=== PATIENT | female | born 1995 | race Hispanic/Latino ===

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

== ENCOUNTER 2017-01-02 20:27 | Emergency (ER) | payer OTHER ==
[~2017-01-02] VITALS: Ht 152.4 cm; Wt 77.3 kg
[~2017-01-02 20:27] MED LIST: CYCL10TA PO; FERR28TA PO; IBUP-1022 PO
[2017-01-02] MEDS ORDERED: KETOROLAC TROMETHAMINE 10 MG TAB PO ONE (21:45)
[2017-01-02] MEDS ORDERED: CYCLOBENZAPRINE 10 MG TAB PO ONE (21:45)
[2017-01-02 23:04] VITALS: BP 112/66
== END 2017-01-02 23:40 | disposition home or self-care (01) ==
LOC: M ED 20:27
DX: M51.26 Other intervertebral disc displacement, lumbar region (principal); R51 Headache; G89.29 Other chronic pain; F41.9 Anxiety disorder, unspecified; F33.9 Major depressive disorder, recurrent, unspecified; A48.1 Legionnaires' disease

== ENCOUNTER 2017-03-02 12:05 | Emergency (ER) | payer OTHER ==
[~2017-03-02] VITALS: Ht 149.9 cm; Wt 77.3 kg
[2017-03-02] MEDS ORDERED: ONDANSETRON 4 MG ORAL DISINTEGRATING TAB (S0181) PO ONE (15:15)
[2017-03-02] MEDS ORDERED: ACETAMINOPHEN 325 MG TAB PO ONE (15:15)
--- NOTE | 2017-03-02 15:45 | REP ---
Clinical: Cough . Comparison: None . Technique: PA and lateral. Findings: The mediastinum and cardiac silhouette are normal. The lung calderon are clear and without acute consolidation, effusion, or pneumothorax. The skeletal structures are intact and normal. Impression: 1. No acute cardiopulmonary process. Signed by Colin Munguia MD 03/02/2017 03:37 P
--- NOTE | 2017-03-02 15:55 | REP ---
CERVICAL SPINE, SEVEN VIEWS: HISTORY: Trauma. There is no acute fracture or subluxation. The intervertebral discs are normal in height. The neural foramina are patent. IMPRESSION: There is no acute fracture or subluxation. Signed by Christiano Puga MD 03/02/2017 04:02 P
[2017-03-02] MEDS ORDERED: VENTAER IN (16:02)
[2017-03-02] MEDS ORDERED: IBUP-1022 PO (16:02)
[2017-03-02 16:10] VITALS: BP 116/58
== END 2017-03-02 16:12 | disposition home or self-care (01) ==
LOC: M ED 12:05
DX: J20.8 Acute bronchitis due to other specified organisms (principal); S13.9XXA Sprain of joints and ligaments of unspecified parts of neck, initial encounter; Z72.0 Tobacco use; V49.40XA Driver injured in collision with unspecified motor vehicles in traffic accident, initial encounter; Y92.410 Unspecified street and highway as the place of occurrence of the external cause; Y93.89 Activity, other specified; Y99.9 Unspecified external cause status

== ENCOUNTER 2017-10-03 12:08 | Emergency (ER) | payer OTHER ==
[2017-10-03] MEDS: ONDANSETRON 4 MG ORAL DISINTEGRATING TAB (Q0162 PER 1MG) PO (13:34)
== END 2017-10-03 15:04 | disposition home or self-care (01) ==
LOC: M ED 12:08
DX: O26.899 Other specified pregnancy related conditions, unspecified trimester (principal); O21.9 Vomiting of pregnancy, unspecified; R19.7 Diarrhea, unspecified; O99.340 Other mental disorders complicating pregnancy, unspecified trimester; F43.10 Post-traumatic stress disorder, unspecified; Z3A.00 Weeks of gestation of pregnancy not specified
CPT/HCPCS: Q0162

== ENCOUNTER 2017-10-09 22:32 | Emergency (ER) | payer OTHER ==
[2017-10-10] MEDS: NS 1,000 ML IV (01:00)
[2017-10-10 01:16] LABS: BASO # 0.1 10^3/uL (0.0-0.2); BASO % 0.4 % (0.0-1.0); EOS # 0.4 10^3/uL (0.0-0.50); EOS % 3.3 % (0.0-3.0); HEMATOCRIT 40.4 % (36.0-47.0); HEMOGLOBIN 12.5 g/dl (12.0-15.5); IMMATURE GRANULOCYTE % 0.3 % (0-3.0); LYMPH # 3.7 10^3/uL (1.5-6.5); LYMPH % 31.6 % (24.0-44.0); MEAN CORPUSCULAR HEMOGLOBIN 21.2 pg (27.0-33.0); MEAN CORPUSCULAR HGB CONC 30.9 g/dl (32.0-36.5); MEAN CORPUSCULAR VOLUME 68.4 fl (80.0-96.0); MONO # 0.7 10^3/uL (0.0-0.8); MONO % 5.9 % (0.0-5.0); NEUTROPHILS # 6.8 10^3/uL (1.8-7.7); NEUTROPHILS % 58.5 % (36.0-66.0); PLATELET COUNT, AUTOMATED 230 10^3/uL (150-450); RED BLOOD COUNT 5.91 10^6/uL (4.00-5.40); RED CELL DISTRIBUTION WIDTH 15.9 % (11.5-14.5); WHITE BLOOD COUNT 11.6 10^3/uL (4.0-10.0)
[2017-10-10 01:45] LABS: KETONE, URINE AUTO RFX NEGATIVE (NEGATIVE); MUCUS, URINE RFX SMALL (NEGATIVE); NITRITE, URINE AUTO RFX NEGATIVE (NEGATIVE); RBC, URINE AUTO RFX 2 /HPF (0-3); SPECIFIC GRAVITY UR AUTO RFX 1.014 (1.002-1.035); SQUAM EPITHELIAL CELL UR AURFX 2 /HPF (0-6); WBC, URINE AUTO RFX 2 /HPF (0-3)
[2017-10-10 01:46] LABS: LEUKOCYTE ESTERASE UR AUTO RFX TRACE (NEGATIVE)
[2017-10-10 02:24] LABS: HCG, SERUM QUANTITATIVE 29730 MIU/ML
== END 2017-10-10 03:51 | disposition home or self-care (01) ==
LOC: M ED 22:32
DX: O20.0 Threatened abortion (principal); O99.341 Other mental disorders complicating pregnancy, first trimester; Z3A.01 Less than 8 weeks gestation of pregnancy
CPT/HCPCS: 76801

== ENCOUNTER 2017-10-18 10:40 | Emergency (ER) | payer OTHER ==
[2017-10-18] MEDS: NS 1,000 ML IV (11:30)
[2017-10-18] MEDS: METOCLOPRAMIDE INJ 10MG/2ML VIAL (J2765) IV (11:36)
[2017-10-18 11:50] LABS: BASO % 0.4 % (0.0-1.0); EOS # 0.3 10^3/uL (0.0-0.50); EOS % 2.7 % (0.0-3.0); HEMATOCRIT 38.4 % (36.0-47.0); HEMOGLOBIN 11.8 g/dl (12.0-15.5); IMMATURE GRANULOCYTE % 0.3 % (0-3.0); LYMPH # 2.5 10^3/uL (1.5-6.5); MEAN CORPUSCULAR HEMOGLOBIN 21.3 pg (27.0-33.0); MEAN CORPUSCULAR HGB CONC 30.7 g/dl (32.0-36.5); MEAN CORPUSCULAR VOLUME 69.2 fl (80.0-96.0); MONO # 0.6 10^3/uL (0.0-0.8); NEUTROPHILS # 6.2 10^3/uL (1.8-7.7); NEUTROPHILS % 64.6 % (36.0-66.0); PLATELET COUNT, AUTOMATED 199 10^3/uL (150-450); RED BLOOD COUNT 5.55 10^6/uL (4.00-5.40); RED CELL DISTRIBUTION WIDTH 16.4 % (11.5-14.5); WHITE BLOOD COUNT 9.6 10^3/uL (4.0-10.0)
[2017-10-18 11:54] LABS: AMORPHOUS SEDIMENT RFX MODERATE (NEGATIVE); KETONE, URINE AUTO RFX NEGATIVE (NEGATIVE); LEUKOCYTE ESTERASE UR AUTO RFX NEGATIVE (NEGATIVE); MUCUS, URINE RFX SMALL (NEGATIVE); NITRITE, URINE AUTO RFX NEGATIVE (NEGATIVE); RBC, URINE AUTO RFX 0 /HPF (0-3); SPECIFIC GRAVITY UR AUTO RFX 1.017 (1.002-1.035); SQUAM EPITHELIAL CELL UR AURFX 1 /HPF (0-6); WBC, URINE AUTO RFX 1 /HPF (0-3)
[2017-10-18 12:27] LABS: ALBUMIN 3.6 GM/DL (3.2-5.2); ALBUMIN/GLOBULIN RATIO 1.03 (1.00-1.93); ALKALINE PHOSPHATASE 68 U/L (45-117); ALT/SGPT 110 U/L (12-78); ANION GAP 8 MEQ/L (8-16); AST/SGOT 30 U/L (7-37); BILIRUBIN,DIRECT < 0.1 MG/DL (0.0-0.2); BILIRUBIN,TOTAL 0.2 MG/DL (0.2-1.0); BLOOD UREA NITROGEN 7 MG/DL (7-18); CALCIUM LEVEL 8.8 MG/DL (8.5-10.1); CARBON DIOXIDE LEVEL 26 MEQ/L (21-32); CHLORIDE LEVEL 104 MEQ/L (98-107); CREATININE FOR GFR 0.55 MG/DL (0.55-1.30); GLUCOSE, FASTING 88 MG/DL (70-100); HCG, SERUM QUANTITATIVE 74097 MIU/ML; MAGNESIUM LEVEL 1.4 MG/DL (1.4-2.0); POTASSIUM SERUM 3.6 MEQ/L (3.5-5.1); SODIUM LEVEL 138 MEQ/L (136-145); TOTAL PROTEIN 7.1 GM/DL (6.4-8.2)
== END 2017-10-18 13:06 | disposition home or self-care (01) ==
LOC: M ED 10:40
DX: O21.0 Mild hyperemesis gravidarum (principal); Z3A.08 8 weeks gestation of pregnancy
CPT/HCPCS: J2765

== ENCOUNTER 2018-01-04 14:53 | Outpatient (CLI) | payer OTHER ==
[2018-01-04 18:29] LABS: AMPHETAMINES URINE REFLEX NEGATIVE (NEGATIVE); BARBITURATES URINE REFLEX NEGATIVE (NEGATIVE); BENZODIAZEPINES URINE REFLEX NEGATIVE (NEGATIVE); COCAINE METABOLITE URINE REFLE NEGATIVE (NEGATIVE); METHADONE URINE REFLEX NEGATIVE (NEGATIVE); OPIATES URINE REFLEX NEGATIVE (NEGATIVE); PHENCYCLIDINE URINE REFLEX NEGATIVE (NEGATIVE)
[2018-01-04 19:34] LABS: CANNABINOIDS URINE REFLEX PENDING CONFIRMATION (NEGATIVE)
== END 2018-01-04 19:22 | disposition home or self-care (01) ==
LOC: M LDO 14:53
DX: O26.852 Spotting complicating pregnancy, second trimester (principal); O44.02 Complete placenta previa NOS or without hemorrhage, second trimester; Z3A.19 19 weeks gestation of pregnancy
CPT/HCPCS: 76815

== ENCOUNTER 2018-06-06 10:35 | Inpatient (IN) | payer OTHER ==
[2018-06-06] VITALS (25 sets, daily range): BP systolic 95–149; BP diastolic 51–87
[~2018-06-06] VITALS: Ht 152.4 cm; Wt 103.6 kg
[~2018-06-06 10:35] MED LIST changes: +DOXY100C37 PO; +PRENTAB9 PO; +REGL10TA6 PO; +TYLE325T5 PO; +VENTAER IN
[2018-06-06] MEDS ORDERED: PRENTAB9 PO (10:59)
[2018-06-06] MEDS ORDERED: LACTATED RINGER'S 1000 ML IV STA (12:27)
[2018-06-06] MEDS ORDERED: OXYTOCIN DRIP 30 UNITS in APPROPRIATE DILUENT 1 EA IV SCH ×2 (12:30→20:17)
[2018-06-06] MEDS ORDERED: ONDANSETRON 4MG/2ML VIAL (J2405) IV ONE (12:30)
[2018-06-06 13:06] LABS: HEMATOCRIT 35.4 % (36.0-47.0); HEMOGLOBIN 10.4 g/dl (12.0-15.5); MEAN CORPUSCULAR HEMOGLOBIN 18.3 pg (27.0-33.0); MEAN CORPUSCULAR HGB CONC 29.4 g/dl (32.0-36.5); MEAN CORPUSCULAR VOLUME 62.3 fl (80.0-96.0); PLATELET COUNT, AUTOMATED 196 10^3/uL (150-450); RED BLOOD COUNT 5.68 10^6/uL (4.00-5.40)
[2018-06-06 13:30] LABS: AMPHETAMINES URINE REFLEX NEGATIVE (NEGATIVE); BARBITURATES URINE REFLEX NEGATIVE (NEGATIVE); BENZODIAZEPINES URINE REFLEX NEGATIVE (NEGATIVE); COCAINE METABOLITE URINE REFLE NEGATIVE (NEGATIVE); METHADONE URINE REFLEX NEGATIVE (NEGATIVE); OPIATES URINE REFLEX NEGATIVE (NEGATIVE); PHENCYCLIDINE URINE REFLEX NEGATIVE (NEGATIVE)
[2018-06-06 13:50] LABS: CANNABINOIDS URINE REFLEX PENDING CONFIRMATION (NEGATIVE)
[2018-06-06] MEDS: LR 1,000 ML IV SCH ×2 (15:09→19:03)
[2018-06-06] MEDS ORDERED: FENTANYL 2MCG/ML ROPIVACAINE 0.2% IN 0.9% NACL 100ML IVBAG As Ordered ONE (15:17)
--- NOTE | 2018-06-06 16:51 | HPEPDOC ---
Obstetrical History & Physical General Date of Admission Jun 06, 2018 at 10:53 History of Present Illness 22 y/o (1 set twins) for IOL at 41+0. No LOF/VB. Lots more vag d/c last few days. Pos FM. Preg c/b marijuana use and prior CD in 2016. Also well controlled depression/anxiety (no meds) and obesity. Was not seen in the clinic until 21 wks other than her dating scan at 9 wks. Chief Complaint: Induction of labor Care Care: Limited Care Dating Final EDC by: 1st trimester (US) Past Medical History Past Obstetrical History : Past Obstetrical History: Multigravida (2013 8 lbs 1 oz, 2016 for twins, SAB in 2017) [employer] History: No pertinent history Past Medical History Medical History depression, anxiety, obesity, drug use (marijuana) Surgical History: section Family History Significant Family History: No pertinent family hx Social History Marital Status: Family situation: Spouse/partner home Psychosocial History: No pertinent psych hx * Smoker: non-smoker (of tobacco, smokes marijuana) Alcohol: Denies Drugs: marijuana Abuse Violence Screening Have you been hit/kicked/slapp: No Have you been sexually assault: No Imunizations Tdap status: current Influenza Status: current Allergies Coded Allergies: No Known Allergies (Unverified , 07/05/17) Medications Scheduled Multivitamins/ ( 27-0.8 mg) 1 Tab Tab, 1 TAB PO DAILY Physical Examination Physical Examination GENERAL: Alert and oriented times three. ABDOMEN: Gravid and non-tender to touch. FETUS: Is vertex (VTX) by sterile vaginal examination (SVE), Around noon was 3-4/75/-2 EXTREMITIES: No edema. Vital Signs/I&O Vital Signs Date Time Temp Pulse Resp B/P (MAP) Pulse Ox O2 Delivery O2 Flow Rate FiO2 06/06/18 14:16 92 20 125/82 (96) 06/06/18 13:15 99.8 Laboratory Data 24H LABS Laboratory Tests 2 06/06/18 12:03: Serology Scanned Report Hepatitis B Testing 06/06/18 12:47: Nucleated Red Blood Cells % (auto) 0.0, Urine Amphetamines Screen NEGATIVE, Urine Benzodiazepines Screen NEGATIVE, Urine Opiates Screen NEGATIVE, Urine Methadone Screen NEGATIVE, Urine Barbiturates Screen NEGATIVE, Urine Phencyclidine Screen NEGATIVE, Urine Cocaine Metabolite Screen NEGATIVE, Urine Cannabinoids Screen PENDING CONFIRMATIONH 06/06/18 13:10: Syphilis Serology NONREACTIVE CBC/BMP Laboratory Tests 06/06/18 12:47 Red Blood Count 5.68 H, Mean Corpuscular Volume 62.3 L, Mean Corpuscular Hemog lobin 18.3 L, Mean Corpuscular Hemoglobin Concent 29.4 L, Red Cell Distribution Width 18.2 H Urine Culture: No Growth Pertinent Laboratoy Data Blood Type: B+ RBC Antibody Screen: Negative HIV: Negative Hepatitis B: Negative Hepatitis C: Unknown Rapid Plasma Reagin: Nonreactive Rubella: Immune Varicella: Nonreactive Chlamydia/Gonorrhea: Negative Group B Streptococcus: Negative Quad Screen Test: Declined Cystic Fibrosis: Negative Anatomy Ultrasound Placenta Location: Anterior Normal Anatomy: Yes Placenta Previa: No Assessment Variability: Moderate Accelerations: Positive Decelerations: None Tocometer Contractions: Yes Frequency: irregular Duration: greater than 60 seconds Strength: palpated as moderate Assessment/Plan Assessment IOL for 41 wks, known TOLAC, proven to 8 lb 1 oz Plan Admit and orient. Hall Monitor and consent. Diet: clears Group B Streptococcus (GBS) neg Labs and intravenous (IV) per unit protocol. Counseled on Pitocin and induction of labor (IOL). Lactated Ringers (LR): Bolus 1000 mL prior to epidural, then at 125 mL/hr. Anticipate successful , OK to TOLAC. C-S as appropriate. RITA HUNT MD Jun 06, 2018 16:51
[2018-06-06] MEDS ORDERED: diphenhydrAMINE INJ 50MG/ML VIAL (J1200) IV PRN (17:00)
[2018-06-06] MEDS ORDERED: REFRIGERATOR IV KEYS XX PRN (17:00)
[2018-06-06] MEDS ORDERED: EPIDURAL/PCA KEYS XX PRN (17:00)
[2018-06-06] MEDS ORDERED: NALOXONE INJ 0.4 MG/1 ML VIAL (J2310) IV PRN (17:00)
[2018-06-06] MEDS ORDERED: LACTATED RINGER'S 1000 ML IV PRN (17:00)
[2018-06-06] MEDS ORDERED: ePHEDrine SULFATE 25 MG/5 ML(5MG/ML) SYRINGE IV PRN (17:00)
[2018-06-06] MEDS ORDERED: FENTANYL/ROPIVACAINE/NACL BAG 100 ML EPIDURAL SCH (17:00)
[2018-06-06] MEDS ORDERED: ONDANSETRON 4MG/2ML VIAL (J2405) IV PRN (17:00)
[2018-06-06] MEDS ORDERED: EPIDURAL COMMENT XX SCH (17:00)
--- NOTE | 2018-06-06 18:52 | IPNPDOC ---
Text Note Date of Service The patient was seen on 06/06/18. NOTE at 1700 s/p successful epidural, Pit at 4 mu/min feeling some pressure, FHT was reassuring, Cat 1 Cx was 7/100/-1/vtx well applied AROM with mec noted, will notify NICU doc Since AROM, has had FHR low 160's, early's present but mod karthik throughout and no other decels RN check ~15 min ago 9/100/0, unable to reduce the Cx with a test push T now 102.5 New dx of IAI (chorio) Will give tylenol 1000 mg and Unasyn 3 GM q 6h and update NICU team Watching tracing closely Sessions VS,Dash, I+O VSDash I+O Laboratory Tests 06/06/18 12:47 Red Blood Count 5.68 H, Mean Corpuscular Volume 62.3 L, Mean Corpuscular Hemoglobin 18.3 L, Mean Corpuscular Hemoglobin Concent 29.4 L, Red Cell Distribution Width 18.2 H Vital Signs Date Time Temp Pulse Resp B/P (MAP) Pulse Ox O2 Delivery O2 Flow Rate FiO2 06/06/18 18:23 129 20 149/64 (92) 06/06/18 16:45 100.3 SESSIONS,RITA Madrid MD Jun 06, 2018 18:52
[2018-06-06] MEDS ORDERED: AMPICILLIN SOD/SULBACTAM SOD 3 GM in D5W MINI-BAG PLUS 100 ML IV SCH (19:00)
[2018-06-06] MEDS ORDERED: ACETAMINOPHEN 500 MG TAB PO ONE (19:00)
[2018-06-06 20:23] LABS: CORD GAS ABE V -4.9; CORD GAS HCO3 V 18.8 MEQ/L; CORD GAS O2 SAT V 63.9 %; CORD GAS PCO2 V 32.4 mmHg; CORD GAS PH V 7.382 UNITS; CORD GAS PO2 V 29.1 mmHg; CORD GAS SBC V 19.6 MEQ/L; CORD GAS TCO2 V 19.8 MEQ/L
[2018-06-06 20:26] LABS: CORD GAS ABE A -6.2; CORD GAS HCO3 A 22.4 MEQ/L; CORD GAS O2 SAT A < 15.0 %; CORD GAS PCO2 A 56.5 mmHg; CORD GAS PH A 7.216 UNITS; CORD GAS TCO2 A 24.1 MEQ/L
--- NOTE | 2018-06-06 20:29 | DNPDOC ---
[facility] Delivery Note Delivery Note DATE OF DELIVERY: PREDELIVERY DIAGNOSIS: 41 0/7 weeks' gestation and labor. POST DELIVERY DIAGNOSIS: Delivered. PROCEDURE: MACHINE ADJUSTER LEADER: Dr. Hunt ANESTHESIA: Epidural ESTIMATED BLOOD LOSS: 200 mL. FINDINGS: 9 pound 2 ounce female infant, Score 6/9, nuchal cord times 1, loose DELIVERY SUMMARY: NICU team called, pushed very well and faster than expected. No delay of the vtx, slight delay of the right ant shoulder but not a shoulder dystocia. Foul smelling fluid. Infant to abd, Cord C/C, baby to warmer and resusc team. Cord blood. Cord gasses. Placenta del'd intact, mec stained. Pit going 999, fundus firm, no trailing membranes with bimanual check to the Cx/ZOILA. Small 1st degr lac repaired with 3-0 vicryl. Good cosmesis/hemostasis. RITA HUNT MD Jun 06, 2018 20:29
[2018-06-06] MEDS ORDERED: IBUPROFEN 800 MG TAB PO PRN (20:30)
[2018-06-06] MEDS ORDERED: ACETAMINOPHEN TAB 650MG DOSE (2X325MG) PO PRN (20:30)
[2018-06-06] MEDS ORDERED: MEASLES,MUMPS,RUBELLA VACCINE INJ (MMR-II) (90707) SC SCH (20:30)
[2018-06-06] MEDS ORDERED: RHOGAM 300 MCG (1500 IU) INJ (J2790) IM SCH (20:30)
[2018-06-06] MEDS ORDERED: METOCLOPRAMIDE INJ 10MG/2ML VIAL (J2765) IV PRN (20:30)
[2018-06-06] MEDS ORDERED: DIBUCAINE 1% OINTMENT 30GM TOP PRN (20:30)
--- NOTE | 2018-06-07 07:14 | IPNPDOC ---
Text Note Date of Service The patient was seen on 06/07/18. NOTE PPD1, Mec/chorio, baby in NICU doing well per pt States feeling well, pain controlled with prescribed meds. Baby bonding and feeding well. No heavy VB. Lochia slowing. Ambulatory. Tolerating PO without issues. Voiding spont. No CP/LP/SOB. VSSAF, no further fevers NAD A&O LE no C/C/E Ut at U-2, firm a/p: Doing well. Cont routine care. D/C likely tomorrow or when baby is d/c'd from NICU. Sessions Dash KIRKLAND, I+O Dash DARBY I+O Laboratory Tests 06/06/18 12:47 Red Blood Count 5.68 H, Mean Corpuscular Volume 62.3 L, Mean Corpuscular Hemoglobin 18.3 L, Mean Corpuscular Hemoglobin Concent 29.4 L, Red Cell Distribution Width 18.2 H Vital Signs Date Time Temp Pulse Resp B/P (MAP) Pulse Ox O2 Delivery O2 Flow Rate FiO2 06/07/18 06:38 97.7 97 16 100 06/06/18 21:47 129/74 (92) I&O- Last 24 Hours up to 6 AM 06/07/18 06:00 Intake Total 1500 ml Output Total 300 ml Balance 1200 ml SESSIONS,RITA Madrid MD Jun 07, 2018 07:14
[2018-06-07] MEDS: DOCUSATE SODIUM 100 MG CAP PO SCH ×3 (09:00→21:11)
[2018-06-07] MEDS: PRENATAL VITAMINS CHEWABLE TABLET PO SCH (09:14)
[2018-06-07 18:21] VITALS: BP 127/75
[2018-06-08 06:42] VITALS: BP 120/75
[2018-06-08] MEDS: DOCUSATE SODIUM 100 MG CAP PO SCH (07:43)
[2018-06-08] MEDS: PRENATAL VITAMINS CHEWABLE TABLET PO SCH (07:44)
--- NOTE | 2018-06-08 09:30 | DSES ---
DATE OF ADMISSION: 06/06/2018 DATE OF DISCHARGE: 06/08/2018 DISCHARGE NOTE: This lady is a 22-year-old, 4, now para 4, was admitted for induction of labor at 41 weeks of gestation with a trial of labor after (TOLAC) in mind. She had a successful vaginal after section (), a live female , 9 pounds 2 ounces, score of 6 and 9 at one and five minutes, respectfully. Cord around the neck times one. Arterial pH 7.12, base excess -6.2. Venous pH 7.38, base excess -4.9. Risk factors are depression, obesity, TOLAC and first-degree tear repaired. We discussed phlebitis, cystitis, mastitis, metritis, cellulitis, diet, exercise pain management, perineal breast and wound care. She is normocephalic, atraumatic. Neck full range of motion. Pupils equal and reactive to light. Distal pulses are symmetric. No evidence of deep venous thrombosis (DVT), pulmonary embolism (PE) or superficial phlebitis. Chest is clear bilaterally to bases. No wheezes or rhonchi. No costovertebral angle (CVA) tenderness. Uterus two below. Lochia is moderate. Four quadrant bowel sounds are noted. She has no rashes, lesions or pruritus. No arthralgia. No myalgia. No complaint of joint pain. No complaint cough, wheeze, shortness of breath or dyspnea on exertion. Not bleeding. Neuro complete. No incontinency or frequency. No nausea, vomiting, diarrhea or constipation. No diabetic issues. She does not smoke. She does occasionally use marijuana for depression. She does not drink. She has a good support system and she does not abuse recreational drugs. On discharge, her vital signs, her blood pressure is 120/75, respirations are 18, pulse is 75 and temperature 98.2. Her hemoglobin was 10.4, hematocrit 35.4 and platelets were 196. In summary, we have a late term gestation, successful , live female . edited: 06/10/2018 0728 [email or web address]
[2018-06-08] MEDS ORDERED: MOTR200T44 PO (10:21)
[2018-06-08] MEDS ORDERED: NUPE1OIN2 TOP (10:21)
[2018-06-08] MEDS ORDERED: ACET650T3 PO (10:21)
[2018-06-08] MEDS ORDERED: COLA100C5 PO (10:21)
[2018-06-09 14:24] LABS: Cannabinoid Positive (.); GC Carboxy THC 432 ng/mL (Cutoff=10)
== END 2018-06-08 12:05 | disposition home or self-care (01) | DRG 805 ==
LOC: M LDO 10:35 → M LDI 10:53 → M OBS 21:37
PROVIDERS: ADMIT Obstetrics & Gynecology; ATTEND Obstetrics & Gynecology
PROC: 10E0XZZ Delivery of Products of Conception, External Approach (ICD-10-PCS; principal; 2018-06-06)
PROC: 0HQ9XZZ Repair Perineum Skin, External Approach (ICD-10-PCS; 2018-06-06)
PROC: 3E033VJ Introduction of Other Hormone into Peripheral Vein, Percutaneous Approach (ICD-10-PCS; 2018-06-06)
PROC: 10907ZC Drainage of Amniotic Fluid, Therapeutic from Products of Conception, Via Natural or Artificial Opening (ICD-10-PCS; 2018-06-06)
DX: O48.0 Post-term pregnancy (principal); Z37.0 Single live birth; O41.1230 Chorioamnionitis, third trimester, not applicable or unspecified; Z3A.41 41 weeks gestation of pregnancy; O34.211 Maternal care for low transverse scar from previous cesarean delivery; O77.0 Labor and delivery complicated by meconium in amniotic fluid; O69.81X0 Labor and delivery complicated by cord around neck, without compression, not applicable or unspecified; O70.0 First degree perineal laceration during delivery; O99.214 Obesity complicating childbirth; E66.9 Obesity, unspecified